=== PATIENT | female | born 1925 | race Caucasian/White ===

== ENCOUNTER 2016-09-16 08:44 | Emergency (ER) | payer MEDICARE, BC ==
[~2016-09-16] VITALS: Ht 172.7 cm; Wt 64.0 kg
[~2016-09-16 08:44] MED LIST: ACTOS15 MG OR; AVELOX400 MG OR; BENICAR20 MG PO; BENICAR40 MG OR; CENTRUM PO; CIPROFLOXACN250 M1 OR; COREG CR20 MG PO; COREG CR80 MG OR; FUROSEMIDE20 MG OR; HYDROCO/APAP1 T10 OR; MULTIVITAM10 OR; NITROFUR MAC100 MG OR; NORCO1 TA1 PO; PLAVIX75 MG PO; ROBITUSSIN AC10 ML PO; SENOKOT8.6 MG PO; SYNTHROID25 MCG PO; TEMAZEPAM7.5 MG OR; TRICOR145 MG PO
[2016-09-16 09:43] LABS: HEMATOCRIT 40.6 % (37.0-47.0); HEMOGLOBIN 13.1 g/dl (12.0-16.0); MEAN CELL VOLUME 87.9 fL CALC (80.0-100.0); MEAN CORPUSCULAR HGB 28.4 pG CALC (26.0-32.0); MEAN CORPUSCULAR HGB CONC 32.3 g/L CALC (32.0-36.0); NEUT# 0.85 thou/uL (2.00-7.15); RED BLOOD COUNT 4.62 mill/uL (4.20-5.60); RED CELL DISTRI WIDTH 14.6 % (11.5-15.5)
[2016-09-16 09:48] LABS: ALBUMIN 3.6 g/dL (3.2-5.0); BILIRUBIN, TOTAL 0.6 mg/dL (0.0-1.4); CALCIUM 9.9 mg/dL (8.4-10.2); CREATININE 1.3 mg/dL (0.5-1.0); POTASSIUM 4.4 mmol/l (3.5-5.1); TOTAL PROTEIN 6.4 g/dL (6.3-8.2)
[2016-09-16 10:08] VITALS: BP 102/57
== END 2016-09-16 10:09 | disposition short-term general hospital (02) ==
LOC: ED 08:44
PROVIDERS: Emergency Medicine
DX: R00.0 Tachycardia, unspecified (principal); R00.1 Bradycardia, unspecified; R07.9 Chest pain, unspecified; I48.91 Unspecified atrial fibrillation; I10 Essential (primary) hypertension; I25.10 Atherosclerotic heart disease of native coronary artery without angina pectoris
CPT/HCPCS: J0282; J1650

== ENCOUNTER 2016-09-21 09:48 | Emergency (ER) | payer MEDICARE, BC ==
[~2016-09-21] VITALS: Ht 172.7 cm; Wt 63.6 kg
[2016-09-21 10:19] LABS: HEMOGLOBIN 13.4 g/dl (12.0-16.0); IMMATURE GRANULOCYTES 0.4 % (0.0-1.0); MEAN CELL VOLUME 87.8 fL CALC (80.0-100.0); MEAN CORPUSCULAR HGB 28.7 pG CALC (26.0-32.0); MEAN CORPUSCULAR HGB CONC 32.7 g/L CALC (32.0-36.0); NEUT# 5.36 thou/uL (2.00-7.15); RED BLOOD COUNT 4.67 mill/uL (4.20-5.60); RED CELL DISTRI WIDTH 14.5 % (11.5-15.5)
[2016-09-21 10:35] LABS: ALBUMIN 3.9 g/dL (3.2-5.0); CALCIUM 9.8 mg/dL (8.4-10.2); CREATININE 1.8 mg/dL (0.5-1.0); POTASSIUM 3.6 mmol/l (3.5-5.1); TOTAL PROTEIN 6.8 g/dL (6.3-8.2)
[2016-09-21] MEDS ORDERED: METO25TAB PO (11:35)
[2016-09-21] MEDS ORDERED: LIPITOR20 M1 PO (11:36)
[2016-09-21] MEDS ORDERED: LISINOPRIL2.5 MG PO (11:36)
[2016-09-21 11:37] VITALS: BP 117/59
== END 2016-09-21 11:37 | disposition short-term general hospital (02) ==
LOC: ED 09:48
PROVIDERS: Family Medicine
DX: I47.2 Ventricular tachycardia (principal); R07.9 Chest pain, unspecified; R00.2 Palpitations; I25.10 Atherosclerotic heart disease of native coronary artery without angina pectoris
CPT/HCPCS: J0282

== ENCOUNTER 2016-10-09 10:23 | Emergency (ER) | payer MEDICARE, BC ==
[~2016-10-09] VITALS: Ht 172.7 cm; Wt 61.3 kg
[~2016-10-09 10:23] MED LIST changes: +LIPITOR20 M1 PO; +LISINOPRIL2.5 MG PO; +METO25TAB PO
[2016-10-09 11:05] LABS: HEMATOCRIT 37.3 % (37.0-47.0); HEMOGLOBIN 12.3 g/dl (12.0-16.0); IMMATURE GRANULOCYTES 0.4 % (0.0-1.0); NEUT# 3.22 thou/uL (2.00-7.15); RED BLOOD COUNT 4.24 mill/uL (4.20-5.60); RED CELL DISTRI WIDTH 15.7 % (11.5-15.5)
[2016-10-09] MEDS ORDERED: CORDARONE/200 MG/TAB PO (11:05)
[2016-10-09] MEDS ORDERED: TEMAZEPAM30 MG PO (11:06)
[2016-10-09] MEDS ORDERED: TYLENOL 500MG TAB PO (11:07)
[2016-10-09] MEDS ORDERED: METOPROL TAR25 MG PO (11:08)
[2016-10-09] MEDS ORDERED: VITAMIN D32000 UNIT PO (11:10)
[2016-10-09] MEDS ORDERED: NORCO1 TA1 PO (11:10)
[2016-10-09] MEDS ORDERED: BRILINTA90 MG PO (11:11)
[2016-10-09] MEDS ORDERED: BENADRYL 25MG C25 MG PO (11:13)
[2016-10-09 11:22] LABS: ALBUMIN 3.9 g/dL (3.2-5.0); BILIRUBIN, TOTAL 0.8 mg/dL (0.0-1.4); CREATININE 1.8 mg/dL (0.5-1.0); POTASSIUM 4.1 mmol/l (3.5-5.1); TOTAL PROTEIN 6.8 g/dL (6.3-8.2)
[2016-10-09 13:02] LABS: URINE BILIRUBIN - DIPSTICK NEGATIVE (NEGATIVE); URINE BLOOD DIPSTICK LARGE (NEGATIVE); URINE COLOR YELLOW; URINE GLUCOSE - DIPSTICK NEGATIVE (NEGATIVE); URINE KETONE NEGATIVE (NEGATIVE); URINE LEUK ESTERASE NEGATIVE (NEGATIVE); URINE NITRITE - DIPSTICK NEGATIVE (Negative); URINE PROTEIN - DIPSTICK 30 mg/dL (NEG-TRACE); URINE UROBILINOGEN - DIPSTICK 0.2 E.U./dL (0.2)
[2016-10-09 13:05] LABS: URINE CLARITY SLIGHT CLOUDY
[2016-10-09 13:07] LABS: URINE EPITHELIAL CELLS MODERATE EPI/hpf (0-FEW); URINE RBC 25-50 RBC/hpf (0-5)
[2016-10-09 14:41] VITALS: BP 150/73
== END 2016-10-09 14:55 | disposition home or self-care (01) ==
LOC: ED 10:23
PROVIDERS: Emergency Medicine
PROC: 0T9B70Z Drainage of Bladder with Drainage Device, Via Natural or Artificial Opening (ICD-10-PCS; principal; 2016-10-09)
DX: N95.0 Postmenopausal bleeding (principal); I25.10 Atherosclerotic heart disease of native coronary artery without angina pectoris; R73.03 Prediabetes

== ENCOUNTER 2017-04-30 19:11 | Emergency (ER) | payer MEDICARE, BC ==
[~2017-04-30 19:11] MED LIST changes: +BENADRYL 25MG C25 MG PO; +BRILINTA90 MG PO; +CORDARONE/200 MG/TAB PO; +METOPROL TAR25 MG PO; +TEMAZEPAM30 MG PO; +TYLENOL 500MG TAB PO; +VITAMIN D32000 UNIT PO
== END 2017-04-30 19:24 | disposition expired ==
LOC: ED 19:11
PROC: 5A12012 Performance of Cardiac Output, Single, Manual (ICD-10-PCS; principal; 2017-04-30)
DX: I46.9 Cardiac arrest, cause unspecified (principal); I49.9 Cardiac arrhythmia, unspecified